=== PATIENT | female | born 1945 | race Caucasian/White ===

== ENCOUNTER 2016-06-07 11:34 | Emergency (ER) | payer MEDICARE, OTHER ==
--- OUTSIDE RECORDS SUMMARY | 2016-06-07 15:00 | XMS REPORT | Continuity of Care Document ---
:1945 Author Organization [facility] ([facility]) Address [place] [address] Phone [phone] Care Team Providers Name Role Phone Marc Beck Primary Care Provider [phone] Source Comments This disclosure is being made pursuant to the Care Everywhere program, applicable federal and state laws, and may not contain all informaitonavailable regarding this patient.[facility] ([facility]) Active Allergies and Adverse Reactions Allergen Noted Date Severity Reactions Comments Adhesive Tape Pruritus Cephalexin 05/12/2016 Rash Cephalosporins 02/10/2013 Rash Ciprofloxacin 02/10/2013 Rash Clotrimazole-Betamethasone 05/12/2016 Pruritus,Rash Cortisone OTHER facial pain and blood pressure elevation Iodinated Contrast Media - 02/10/2013 Unknown Oral And Iv Dye Latex 02/10/2013 Rash Nitrofurantoin 05/12/2016 Pruritus Monohyd/M-Cryst Penicillins Urticaria (Hives) Prednisone 05/12/2016 OTHER Sulfa (Sulfonamide 05/12/2016 Pruritus Antibiotics) Sulfadoxine Urticaria (Hives) Tramadol 05/12/2016 Pruritus Current Medications Prescription Sig. Disp. Refills Start Date End Date Status metFORMIN 1,000 mg Take 800 mg by mouth Active XR tablet 3 times daily. gabapentin 400 mg Take 800 mg by mouth Active capsule 2 times daily. atorvastatin 20 mg Take 20 mg by mouth Active tablet daily. INSULIN Inject Active GLARGINE,HUM.REC.A subcutaneously 2 NLOG (LANTUS SC) times daily. Sliding scale INSULIN ASPART Inject 70 Units Active (NOVOLOG SC) subcutaneously at bedtime. glimepiride 2 mg Take 2 mg by mouth Discontinued tablet Every morning. 7 aspirin 325 mg Take 325 mg by mouth Discontinued tablet daily. 7 atenolol 25 mg Take 25 mg by mouth Discontinued tablet daily. 7 isosorbide Take 30 mg by mouth Discontinued mononitrate 30 mg Every morning. 7 CR tablet sitaGLIPtin Take 100 mg by mouth Discontinued (JANUVIA) 100 mg daily. 7 tablet calcium carbonate Take 1 Tab by mouth Discontinued (500 mg Ca) 1250 2 times daily. 7 mg -vitamin D 200 unit per tablet latanoprost 0.005 instill 1 Drop onto Discontinued % ophthalmic the right eye daily. 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 Most Recent Encounters Date Type Specialty Providers Description 06/06/2016 Telephone Dermatology Tami Grey, Chief Comp: Post-op Jyoti Ortiz MD Follow-up Call 06/05/2016 Office Visit Dermatology Tami Grey, Dx: Melanoma in situ Jyoti Ortiz MD of scalp (Primary Dx) 05/30/2016 Telephone Dermatology Tami Gery, Chief Comp: Jyoti Ortiz MD Information Before Appointment 05/19/2016 Office Visit Dermatology Tami Grey Dx: Lentigo maligna Jyoti Ortiz MD melanoma 05/12/2016 Office Visit Otolaryngology Alek Kincaid MD Dx: Lentigo maligna melanoma (Primary Dx) 05/10/2016 Telephone Cancer Center Soraida Shepard 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 05/06/2016 Lab Requisition Pathology [facility], [facility] Dx: Neoplasm of uncertain behavior of skin 04/28/2016 Telephone Cancer Center Karen Patiño Chief Comp: Referral 04/26/2016 Lab Requisition Pathology [facility], [facility] Dx: Inflamed seborrheic keratosis Social History Tobacco Use Types Packs/Day Years Used Date Never Smoker Smokeless Tobacco: Never Used Tobacco Cessation:Counseling Given: Yes Comments: Last Filed Vital Signs Vital Sign Reading Time Taken Blood Pressure 142/70 06/05/2016 8:23 AM CDT Pulse 65 06/05/2016 8:23 AM CDT Temperature 36.1 C (97 F) 06/05/2016 8:23 AM CDT Respiratory Rate - - Height 1.715 m (5' 7.5") 05/12/2016 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 Weight 94.7 kg (208 lb 12.4 oz) 05/12/2016 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 Body Mass Index 32.2 05/12/2016 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 Oxygen Saturation 98% 06/05/2016 8:23 AM CDT Plan of Care Date Type Specialty Providers Description 06/19/2016 Appointment Dermatology Tami Grey, Chief Comp: Patient Jyoti Ortiz MD Reported Reason For Visit [address] [place] [address] [phone] (Fax) Health Maintenance Due Date Last Done Comments HCV Screening 1945 Hepatitis B Vaccine (1 of 3 - Primary Series) 1945 Tdap Vaccine 08/03/1958 Lipid Disorder Screening 08/03/1965 Td Vaccine 08/03/1965 Mammogram 1987 Colonoscopy 08/03/1997 Zoster Vaccine 2007 Osteoporosis Screening (DXA Bone Density) 08/03/2012 Pneumococcal Vaccine (1 of 2 - PCV13) 08/03/2012 Influenza Vaccine: Seasonal (#1) 10/11/2015 Procedures from Last 3 Months Procedure Name Priority Date/Time Associated Diagnosis Comments MOHS SURGERY Routine 06/05/2016 6:29 PM Melanoma in situ of Results for this CDT scalp procedure are in the results section. Results from Last 3 Months MOHS SURGERY (06/05/2016 6:29 PM) Jacy Morel MD 06/05/20166:29 PM Mohs Micrographic Surgery Operation Record Surgery/Procedure Date: 06/05/2016 Surgical Service: Dermatologic Surgery Attending Staff Surgeon: Jyoti Grey MD Fellow: Jacy Atkinson MD Mohs micrographic surgery was indicated. The nature and purpose of the procedure, associated risks, possible consequences and complications, and alternative forms of treatment were explained to the patient.Written informed consent and a photo permit were obtained.The patient was positioned and the area was infiltrated with local anesthetic, prepped, and draped in the usual manner. 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 Pre-operative Size: 2 x 2 cm Post-operative Diagnosis: Same Indications: ill - defined clinical margins, lesion > 2 cm in diameter Operation/Procedure: Mohs micrographically controlled excision with with a rotation flap The clinically apparent tumor was debulked with a scalpel and scissors.The debulked specimen was sent to the lab for permanent section pathology/ staging Stage I: A 2 mm rim of normal appearing skin was marked circumferentially around the defect.The area thus outlined was excised deep to subcutaneous fat.Hemostasis was achieved with bipolar electrocoagulation.The specimen was oriented, subdivided into 4 sections, chromacoded, and submitted for horizontal frozen sections.The patient tolerated the procedure well and no complications were noted.Upon review of the horizontal frozen sections of Stage I, no residual melanoma in situ was seen. However, superficial basal cell carcinoma was noted along the periphery of the one of the specimens. Stage II: The residual tumor was debulked with a scalpel.A 2 mm rim of normal appearing skin was marked circumferentially around the periphery of the defect.The area thus outlined was excised deep to subcutaneous fat.Hemostasis was achieved with bipolar electrocoagulation.The specimen was oriented, subdivided into 2 sections, chromacoded, and submitted for horizontal frozen sections.The patient tolerated the procedure well and no complications were noted.Upon review of the horizontal frozen sections of stage II, residual tumor was not identified. The final defect size was 4.8 x 3.6 cm and the total number of microscopic sections was 6.The surgical defect was repaired with an O to Z rotation flap CLOSURE: A(n) laterally-based O to Z rotation flap was outlined using Gentian lianet to the defect.Adequate anesthesia was then obtained by infiltrating 1% lidocaine with 1:100,000 epinephrine along the edges, at the base of the defect, and deep to the proposed flap. The edges of the defect were undermined at the dermal subcutaneous layer approximately 5 cm in all directions. The edges could not be apposed without significant tension. The outline of the proposed flap was incised down to the dermal subcutaneous junction with a #15 scalpel blade. With a skin hook and iris scissors, the flap was gently, sharply undermined and freed up. Adequate hemostasis was obtained with pinpoint electrocoagulation on all surfaces. Using 4-0 Polysorb sutures, the secondary defect was closed and then the deep tissues of the flap were apposed and closed.Subsequently, the tip of the flap was trimmed with curved iris scissors to match the contour of the primary defect. The epidermal edges were then closed with multiple 5-0 Surgipro sutures. Redundant tissue repair was performed at the central pole and subsequently closed in a layered linear fashion. There was minimal to no noticeable distortion to surrounding anatomic structures. The surgical site was lightly scrubbed with sterile saline. A petrolatum ointment, Adaptic, and gauze pressure dressing was applied to the closed wound. The patient tolerated the procedure well without complications and was given both verbal and written explicit instructions on postoperative wound care. Follow up for suture removal in 10 days. Patient was recommended acetaminophen 650mg po PRN pain.The patient was discharged from the Dermatology Clinic in good condition. Jyoti Grey MD was physically present for the entire procedure. Teaching Statement: Staff Involved: Staff and Resident/Fellow Jacy Atkinson MD Procedure Summary: Mohs micrographically controlled excision Area affected: head/neck Location details: scalp Number of Stages: 2 Number of Tissue Blocks in Stage 1: 4 Number of Tissue Blocks in Stage 2: 2 Repair(s) performed: adjacent transfer Adjacent Transfer Size: 35 sq cm DERMATOPATHOLOGY EXAM (06/05/2016 9:34 AM)Only the most recent of3 resultswithin the time period is included. Component Value Range Case Report Surgical Pathology Case: [id number] Authorizing Provider:Jacy Atkinson MD Collected: 06/05/2016 09:34 AM Ordering Location: Dermatology Clinic Received: 06/05/2016 10:37 AM Pathologist: Annel Sanon MD Specimen:Skin, other, specify, scalp Diagnosis Skin, scalp, Mohs debulk: Melanoma in-situ, lentigo maligna type, margin focally involved. Scar and changes consistent with prior procedure. I have personally reviewed this case and edited the report as necessary. Clinical Information Mohs debulk of lentigo maligna melanoma in situ, for staging Gross Description A.Received in formalin, in a container labeled Kade Fatuma Avalos, hospital number, and "scalp", is a 2.0 x 1.9 cm unoriented, ovoid, ramos , wrinkled, hair-bearing portion of skin excised to a depth of 0.7 cm with a 0.6 x 0.5 cm irregular, pink-red, moderatelywell-healed previous surgical defect located 0.2 cm from the nearest margin.The resection margin is inked blue and the specimen is ser ially sectioned to reveal smooth, ramos-white, fibrous cut surfaces.No discrete deep invasion is grossly identified.Medical Technologist sections are submitted as labeled: A1: one end, perpendicularly submitted A2: other end, perpendicularly submitted A3-A4: central cross sections to include entire previous surgical defect ATC/cja Microscopic Description Sections show a lentiginous single cell and nested proliferation of atypical melanocytes intraepidermally along the dermal- epidermal junction with areas of background epidermal rete ridge attenuation noted.. Margins are focally involved. There is also central epidermal attenuation overlying horizontal dermal fibrosis and scattered chronic inflammation. Performed by:Tony Gutierrez MD, R4/tkr Specimen Skin - Skin, other, specify
[2016-06-07 16:02] VITALS: BP 126/62
--- NOTE | 2016-06-07 16:31 | ERNOTE ---
Lower Extremity HPI - General Lower Extremities Pain: leg: left Time Seen by Provider: 06/07/16 14:22 Source: patient Exam Limitations: no limitations - Immun/Allergies/Home Medications Immunizations: IMMUNIZATION HX Immunizations Up to Date Yes History of Influenza Vaccine Yes Hx Pneumococcal Vaccination Yes Allergies/Adverse Reactions: Allergies Allergy/AdvReac Type Severity Reaction Status Date / Time cephalexin monohydrate Allergy Verified 06/07/16 14:35 [From Keflex] ciprofloxacin [From Cipro] Allergy Verified 06/07/16 14:35 ciprofloxacin HCl Allergy Verified 06/07/16 14:35 [From Cipro] cortisone [Cortisone] Allergy Verified 06/07/16 14:35 latex Allergy Verified 06/07/16 14:35 Penicillins Allergy Verified 06/07/16 14:35 Sulfa (Sulfonamide Allergy Verified 06/07/16 14:35 Antibiotics) tramadol Allergy Verified 06/07/16 14:35 ivp dye Allergy Uncoded 06/07/16 14:35 surgery tape Allergy Uncoded 06/07/16 14:35 Home Medications: HOME MEDICATIONS Gabapentin 400 mg PO BID 02/12/13 [Last Taken Unknown] metFORMIN HCL [Metformin HCl ER] 850 mg PO TID 02/12/13 [Last Taken Unknown] Insulin Aspart [Novolog] 100 unit SQ QID 08/19/15 [Last Taken Unknown] Insulin Glargine,Hum.rec.anlog [Lantus] 70 unit SQ DAILY 08/19/15 [Last Taken Unknown] Acetaminophen [Tylenol] 650 mg PO Q4H PRN 06/07/16 [Last Taken Unknown] Atorvastatin Calcium 20 mg PO DAILY 06/07/16 [Last Taken Unknown] Doxycycline Monohydrate 100 mg PO BID #20 tablet 06/07/16 [Last Taken Unknown] Ibuprofen [Motrin] 200 mg PO PRN PRN 06/07/16 [Last Taken Unknown] Naproxen [Naprosyn] 500 mg PO BID #60 tablet 06/07/16 [Last Taken Unknown] - History of Present Illness Narrative: Pt is worried about a DVT since she had lesion taken off of her head several days ago. Occurred: this morning Location of Incident: home Prior Treament: Reports: recently seen, treated by physician Review of Systems - Review of Systems Constitutional: Present: See HPI EYE: Present: no symptoms reported ENT: Present: no symptoms reported Respiratory: Present: no symptoms reported Cardiology: Present: no symptoms reported Gastrointestinal/Abdominal: Present: no symptoms reported Genitourinary: Present: no symptoms reported Musculoskeletal: Present: See HPI Skin: Present: no symptoms reported Neurological: Present: no symptoms reported Endocrine: Present: no symptoms reported Hematologic/Lymphatic: Present: no symptoms reported Psych: Present: no symptoms reported - Patient's Past Medical History Patient History - Medical: Diabetes Type 2, UTI'S Patient History - Cardiac/Respiratory: No pertinent hx Patient History - Cancer: Melanoma, Skin Patient History - Surgical Procedures: Cataracts, , Hysterectomy, Other Patient History - Other: None LMP (females 10-50): Menopausal - Family History Mother Family History - Medical: Diabetes Type 1 - Social History Living Situations: spouse Abuse History: No History of abuse Psych History: No pertinent hx Smoking Status: Never smoker Alcohol Use: none Drug Use: none - Immunizations Immunizations Up to Date: Yes Hx Pneumococcal Vaccination: Yes History of Influenza Vaccine: Yes Physical Exam - Physical Exam General Appearance: Present: wd/wn, alert, mild distress Eye Exam: Normal inspection: bilateral, PERRL: bilateral Ears, Nose, Throat: Present: normal ENT inspection, H, normal pharynx Neck: Present: normal inspection, nontender Respiratory: Present: no respiratory distress, normal breath sounds, no accessory muscle use, chest nontender, lungs clear Cardiovascular/Chest: Present: regular rate, rhythm, no murmur, normal peripheral pulses Gastrointestinal/Abdominal: Present: normal bowel sounds, nontender, nondistended, soft, no organomegaly Rectal Exam: Present: deferred Back Exam: Present: normal inspection, normal range of motion Extremity Exam: Present: normal range of motion, no edema, calf tenderness - around varicose veins Neurological Exam: Present: alert, oriented, normal mood/affect Skin Exam: Present: normal color, warm/dry Lymphatic Exam: Present: no adenopathy ED Progress - Vital Signs Patient's Vital Signs:: I have reviewed the patient's vital signs. Vital Signs: Vital Signs 06/07/16 06/07/16 06/07/16 11:42 14:30 15:59 Temperature 36.5 C 36.5 C 36.3 C L Pulse Rate 59 L 60 59 L Respiratory 16 14 14 Rate Blood Pressure 128/80 153/91 126/62 O2 Sat by Pulse 97 96 95 Oximetry - CT/Ultrasound CT/Ultrasound Narrative: Venous Doppler US reviewed and discussed with the patient. - Progress/Reassessment Chief Complaint: Lower Extremity Pain/ Injury Departure Clinical Impression: Superficial thrombophlebitis of left leg - Departure Disposition: Home self-care Condition: Good Instructions: Varicose Veins Referrals: Marc Beck MD [Primary Care Provider] - Prescriptions: Doxycycline Monohydrate 100 mg PO BID #20 tablet Naproxen [Naprosyn] 500 mg PO BID #60 tablet
== END 2016-06-07 16:35 | disposition home or self-care (01) ==
LOC: ER 11:34
DX: I80.02 Phlebitis and thrombophlebitis of superficial vessels of left lower extremity (principal); Z98.890 Other specified postprocedural states